=== PATIENT | female | born 1995 | race Caucasian/White ===

== ENCOUNTER 2020-10-13 10:01 | Emergency (ER) | payer OTHER, MEDICAID, SELFPAY ==
[2020-10-13] VITALS (7 sets, daily range): BP systolic 102–136; BP diastolic 58–99; PULSE 57–76; RESP 15–20; TEMP 36.3–37; O2SAT 88–100
--- NOTE | 2020-10-13 11:28 | ED.HA ---
HPI - Headache General Chief Complaint: Headache Stated Complaint: migraine Time Seen by Provider: 10/13/20 11:03 Source: patient Mode of arrival: ambulatory Limitations: no limitations History of Present Illness HPI Narrative: Patient is a 25 year old female with history of TBI with chronic headaches who presents for evaluation of a headache. She complains of constant frontal headache that she describes as burning pain. She reports associated nausea, light sensitivity . She has not taken anything for pain today and she reports she only took tylenol yesterday. She reports she is evaluated by a neurologist for several months but they have been unable to get rid of her headaches. She has also been to multiple hospitals for evaluation. MD elicited complaint: headache Related Data Allergies Allergy/AdvReac Type Severity Reaction Status Date / Time morphine Allergy Vomiting Verified 10/13/20 11:31 Review of Systems Review of Systems: All systems reviewed & are unremarkable except as noted in HPI and below Constitutional: Constitutional: Denies chills and Denies fever(s) Eyes: Eyes: Reports photophobia ENT: Denies dysphagia, Denies dizziness and Denies sore throat Cardiovascular: Cardiovascular: Denies chest pain Respiratory: Respiratory: Denies cough and Denies dyspnea Gastrointestinal: Gastrointestinal: Denies abdominal pain and Reports nausea Neurologic: Denies dizziness, Reports headache(s), Denies focal weakness, Denies numbness and Denies weakness PMFSH Past Medical History Medical History (Updated 10/13/20 @ 13:59 by Keisha Verduzco MD) Carpal tunnel syndrome Chronic headache Surgical History Surgical History (Updated 10/13/20 @ 13:59 by Keisha Verduzco MD) History of carpal tunnel surgery Social History Social History (Updated 10/13/20 @ 13:59 by Keisha Verduzco MD) Smoking status: Never smoker Gender identity (if verbalized by the patient): Female Exam Narrative: Exam Narrative: GENERAL: Well-appearing, well-nourished, and in no acute distress. HEAD: Normocephalic, atraumatic EYES: PERRLA and EOMI, conjunctiva clear without discharge THROAT:Mucous membranes moist, Oropharynx normal without erythema, exudate, peritonsillar swelling or fluctuance NECK: Supple, without lymphadenopathy or mass, no meningmus RESPIRATORY: No respiratory distress, Airway patent, Respirations non-labored, Clear to auscultation without rales, rhonchi or wheeze HEART: Regular rate and rhythm. No murmur heard. Normal peripheral pulses. ABDOMEN: Soft, nontender, nondistended, normal active bowel sounds. No masses. No rebound or guarding, No organomegaly. EXTREMITIES: No edema, normal strength with full range of motion. SKIN: Warm, dry, normal color without rash NEURO: Alert and oriented x3. CN 2-12 grossly intact. No focal deficits. PSYCH: Normal mood and affect. Course Reevaluation(s) Reevaluation #1: I Discussed with patient labs. I discussed she could have viral infection such as covid to explain headache. She declines testing for covid. She states she feels better and she is ready to go home. She does not want any addition testing or medication. She has no signs of meningitis. THis seems unlikely SAH. She will continue to follow up with neurologist Date: 10/13/20 Time: 13:56 Vital Signs Vital signs: Vital Signs Temperature 97.4 F L 10/13/20 10:24 Pulse Rate 75 10/13/20 10:24 Respiratory Rate 18 10/13/20 10:24 Blood Pressure 136/99 H 10/13/20 10:24 Pulse Oximetry 100 10/13/20 10:24 Temperature 98.6 F 10/13/20 11:19 Pulse Rate 76 10/13/20 14:35 Respiratory Rate 20 10/13/20 14:35 Blood Pressure 102/60 10/13/20 14:35 Pulse Oximetry 100 10/13/20 14:35 MDM - Headache Lab Data Attestation: I reviewed the patient's lab results. Result diagrams: 10/13/20 11:53 10/13/20 11:53 Labs: Lab Results 10/13/20 10/13/20
[2020-10-13 11:59] LABS: Basophils Percent Auto 0.3 % (0.2-1.2); Eosinophils Percent Auto 1.1 % (0-4.4); Hematocrit 39.1 % (37.0-47.0); Hemoglobin 12.7 g/dL (12.0-15.0); Immature Granulocyte Absolute 0.01 K/mm3 (0.00-0.031); Immature Granulocyte Percent A 0.3 % (0-0.5); Lymphocytes Absolute Auto 1.57 K/mm3 (0.9-3.2); Lymphocytes Percent Auto 42.8 % (18.3-44.2); Mean Corpuscular HGB Conc 32.5 g/dl (32-36); Mean Corpuscular Hemoglobin 30.4 pg (26-34); Mean Corpuscular Volume 93.5 fl (80-100); Mean Platelet Volume 9.9 fl (7.4-10.4); Monocytes Absolute Auto 0.4 K/mm3 (0.1-0.6); Monocytes Percent Auto 10.4 % (2.6-8.5); Neutrophils Absolute Auto 1.7 K/mm3 (1.3-6.7); Neutrophils Percent Auto 45.1 % (45.5-73.1); Platelet Count Result 198 k/mm3 (150-375); Red Blood Count 4.18 M/mm3 (4.2-5.4); Red Cell Distribution Width 13.4 % (11.5-14.5); White Blood Count 3.7 K/mm3 (4.5-10.0)
--- NOTE | 2020-10-13 12:13 | PC.NURSE ---
[facility] exam showed 20/40 vision in left eye, 20/30 in right eye.
[2020-10-13 12:16] LABS: Alanine Aminotransferase 46 U/L (4-35); Albumin Level 4.7 g/dL (3.5-5.1); Alkaline Phosphatase 54 U/L (38-126); Anion Gap 5 mmol/L (8-16); Aspartate Amino Transferase 42 U/L (14-36); Bilirubin,Total 1.1 mg/dL (0.2-1.3); Blood Urea Nitrogen 14 mg/dL (7-17); CRP < 0.5 mg/dL (<1.0); Calcium 9.3 mg/dL (8.4-10.2); Carbon Dioxide 28 mmol/L (22-30); Chloride 105 mmol/L (98-107); Estimated CRCL calculation 103 ml/min; Estimated Glomerular Filt Rate > 60; Glucose 84 mg/dL (65-105); Potassium 4.2 mmol/L (3.4-5.0); Sodium 138 mmol/L (137-145)
[2020-10-13] MEDS: LACTATED RINGERS 1,000 ML 999 ML IV CONT (12:27)
[2020-10-13] MEDS: diphenhydrAMINE HCl INJ 50 MG/ML VIAL 25 MG IV PUSH (12:29)
[2020-10-13] MEDS: KETOROLAC 30 MG/ML VIAL (*BKC) IV PUSH (12:30)
[2020-10-13] MEDS: METOCLOPRAMIDE HCL INJ 10 MG/2 ML VIAL IV PUSH (12:33)
== END 2020-10-13 14:33 | disposition home or self-care (01) ==
PROVIDERS: Emergency Provider General Practice; PCP Registered Nurse
DX: G44.209 Tension-type headache, unspecified, not intractable (principal); Z87.820 Personal history of traumatic brain injury
CPT/HCPCS: 36415; 80053; 81025; 85025; 86140; 96361; 96374; 96375; 99284; J1200; J1885; J2765; J7120